=== PATIENT | female | born 1945 | race Caucasian/White ===

== ENCOUNTER → 2016-09-03 | Outpatient (CLI) | payer OTHER ==
--- NOTE | 2016-09-04 14:22 | RADRPT ---
Echocardiogram Report Patient Name: GURVINDER WILSON Gender: Female Date: 1945 Study Date: 03-Sep-2016 [employer]droponics Worker: Citlali [id number] Location: [id number] Ref. Physician: LISA DELATORRE Quality: Technically Difficult Study Procedures: Transthoracic echocardiogram with complete 2D, M-Mode, and doppler examination. Indications: Evaluate Left Ventricular function. 2D/M Mode Doppler Measurement Value Normal Ranges Measurement Value Normal Ranges LVIDd 2D 5.7 3.5 - 5.6 cm RAJI Vmax 1.5 cm2 LVIDs 2D 3.6 2.1 - 4.1 cm RAJI VTI 1.5 cm2 LVPWd 2D 0.6 0.6 - 1.1 cm AV Mean Santosh 2.9 m/sec IVSd 2D 1.0 0.6 - 1.1 cm AV Mean PG 37.7 mmHg AoR Diam 2D 1.6 2.0 - 3.7 cm AV Peak Santosh 3.9 m/sec EDV 2D 158.5 cm3 AV Peak PG 61.7 mmHg ESV 2D 47.9 cm3 AV VTI 88.9 cm LA Dimen 2D 3.8 2.3 - 4.0 cm LVOT Mean Santosh 2.2 m/sec LVOT Diam 1.5 cm LVOT Mean PG 22.9 mmHg LVOT Peak Santosh 3.2 m/sec LVOT Peak PG 7.9 mmHg LVOT VTI 63.4 cm MV PHT 94.1 msec MV Peak Santosh 1.8 m/sec MV Peak PG 13.1 mmHg MV Mean Santosh 0.9 m/sec MV Mean PG 4.3 mmHg MV PHT 94.1 msec MV VTI 37.4 cm MVA PHT 2.3 cm2 TR Peak Santosh 3.1 m/sec TR Peak PG 37.6 mmHg RVSP 41.0 mmHg Findings Left Ventricle: Normal left ventricular systolic function. Normal left ventricular cavity size. Mild concentric left ventricular hypertrophy. Ejection fraction is visually estimated at 60 %. Right Ventricle: Normal right ventricular size. Normal right ventricular systolic function. Left Atrium: There is severe enlargement of left atrium. Right Atrium: There is moderate enlargement of right atrium. 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 Mildly elevated gradients with peak/mean of 13/4 mmHg. MVA could not be accurately calculated due to inaccurate LVOT measurements. MR is difficult to quantify. Aortic Valve: Moderately calcified aortic valve with moderate restriction of leaflet opening. There is a suggestion of a mobile echodensity on the LVOT aspect which could be a vegetation in the correct clinical setting or may just be artifact. If clinical suspicion is high, this can be better evaluated by transesophageal echocardiogram. The aortic valve appears trileaflet and possibly rheumatic. By gradients there is borderline severe aortic stenosis with Vm 3.9 m/s, peak/mean gradients 62/38 mmHg, RAJI could not be accurately calculated as the LVOT measurements were inaccurate. There is mild aortic regurgitation. Tricuspid Valve: Tricuspid valve not well visualized. Estimated peak PA systolic pressure 41 mmHg. There is mild tricuspid regurgitation. Pericardium: Normal pericardium with no significant pericardial effusion. Aorta: Normal aortic root. Not well visualized. IVC: Normal size and normal respiratory collapse consistent with normal right atrial pressure. Conclusions 1.Moderately calcified aortic valve with moderate restriction of leaflet opening. There is a suggestion of a mobile echodensity on the LVOT aspect which could be a vegetation in the correct clinical setting or may just be artifact. If clinical suspicion is high, this can be better evaluated by transesophageal echocardiogram. The aortic valve appears trileaflet and possibly rheumatic. By gradients there is borderline severe aortic stenosis with Vm 3.9 m/s, peak/mean gradients 62/38 mmHg, RAJI could not be accurately calculated as the LVOT measurements were inaccurate. There is mild aortic regurgitation. 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 Mildly elevated gradients with peak/mean of 13/4 mmHg. MVA could not be accurately calculated due to inaccurate LVOT measurements. MR is difficult to quantify. 3.Normal left ventricular systolic function. Normal left ventricular cavity size. Mild concentric left ventricular hypertrophy. Ejection fraction is visually estimated at 60 %. 4.Estimated peak PA systolic pressure 41 mmHg based on RA pressure of 3 mmHg. Electronically Signed By: Leroy Hernandez 04-Sep-2016 14:21:42 -0700 Patient Name: GURVINDER WILSON Study Date: 03-Sep-2016 [id number]
== END | disposition home or self-care (01) ==
LOC: EKG 09:33
PROVIDERS: ATTEND Specialist
DX: Z04.2 Encounter for examination and observation following work accident (principal)
CPT/HCPCS: 93306